=== PATIENT | female | born 1960 ===

== ENCOUNTER 2018-08-02 10:23 | Outpatient (CLI) | payer OTHER | END 2018-08-02 10:24 | disposition home or self-care (01) | LOC: LAB 10:23 ==

== ENCOUNTER 2018-08-04 11:28 | Outpatient (CLI) | payer OTHER | END 2018-08-04 11:29 | disposition home or self-care (01) | LOC: LAB 11:28 ==

== ENCOUNTER 2018-08-05 09:18 | Outpatient (CLI) | payer OTHER | END 2018-08-05 09:19 | disposition home or self-care (01) | LOC: RAD 09:18 | DX: Z12.31 Encounter for screening mammogram for malignant neoplasm of breast (principal); Z13.820 Encounter for screening for osteoporosis ==